=== PATIENT | male | born 1985 | race Caucasian/White ===

== ENCOUNTER 2024-04-03 01:00 | Emergency (ER) | payer BC, SELFPAY ==
[2024-04-03] VITALS (8 sets, daily range): BP systolic 136–202; BP diastolic 80–124; BMI 34.5
--- NOTE | 2024-04-03 01:21 | ED.GENMED ---
History of Present Illness
General
Chief Complaint: Abdominal Symptoms
Source: patient
Time Seen by Provider: 04/03/24 01:13
History of Present Illness
History of Present Illness:
38-year-old male presents to the emergency room complaining of acid reflux type burning in his upper abdomen and chest. Symptoms began around 9 PM. Patient admits to having a large [place] meal. He does have a history of reflux for which he takes
Nexium. He he cannot recall having heartburn this severe however. No shortness of breath. Patient has a history of hypertension. He had a cardiac cath 10 years ago which was clean. No true abdominal pain. Patient endorses significant stress in
his life.
Phy Exam
Physical Exam
Physical Exam:
General: Awake, Alert, Oriented X3. No acute distress.
Vitals: unremarkable
Head: Atraumatic
Eyes: Pupils equal, EOMI
Throat: Airway intact, no exudates
Neck: Trachea midline
Lungs: Clear and equal b/l
Heart: Regular rate, no murmurs
Abd: Soft, Nontender, No pulsatile mass
Neuro: Nonfocal
Skin: Warm, dry, no rash
Extremities: pulses equal b/l, no edema
Course
Orders/Labs/Results
Orders:
Orders
04/03/24 01:08
ECG [Electrocardiogram (*1)] Urgent
Reason for Study: Hypertension, Benign
EKG- Treatment ONCE
04/03/24 01:11
IV Insert/Care/Rem.- Treatment PRN
04/03/24 01:20
Complete Blood Count/With Diff Urgent
Comprehensive Metabolic Panel Urgent
Lipase Urgent
Troponin I Urgent
04/03/24 01:21
Mag Hydrox/Al Hydrox/Simeth [Maalox] 30 ml Phenobarb/Hyoscy/Atropine/Scop [] 10 ml Viscous Lidocaine 2% [Xylocaine Viscous Cup] 10 ml PO NOW
04/03/24 01:34
Mag Hydrox/Al Hydrox/Simeth [Maalox] 30 ml .ROUTE .STK-MED ONE
Phenobarb/Hyoscy/Atropine/Scop [] 10 ml .ROUTE .STK-MED ONE
04/03/24 01:35
Viscous Lidocaine 2% [Xylocaine Viscous Cup] 15 ml .ROUTE .STK-MED ONE
04/03/24 02:19
Famotidine [Pepcid] 20 mg IV NOW STA
04/03/24 02:31
Electrocardiogram (*1) Urgent
Reason for Study: Chest Pain
EKG- Treatment ONCE
04/03/24 04:20
Troponin I Urgent
04/03/24 05:12
Sucralfate Suspension [Carafate Suspension] 1 gm PO NOW STA
Abnormal Lab Results
04/03/24
01:20
Absolute Lymphs (auto) 3.9 H 10^3/uL
(1.2-3.4)
BUN 22 H mg/dl
(9-20)
Glucose 120 H mg/dl
(70-99)
04/03/24 01:20
04/03/24 01:20
Vital Signs
Initial and Last Documented VS:
Initial Vital Signs
Temp Pulse Resp BP Pulse Ox
98.2 F 70 24 202/124 98
04/03/24 01:02 04/03/24 01:02 04/03/24 01:02 04/03/24 01:02 04/03/24 01:02
Last Documented Vital Signs
Temp Pulse Resp BP Pulse Ox
98.2 F 60 24 136/80 94
04/03/24 01:02 04/03/24 04:00 04/03/24 04:00 04/03/24 04:00 04/03/24 04:00
*EKG
Interpreted by ED Provider?: Yes
Heart Rate: 67
Rate: normal
Rhythm: sinus
[place]: normal axis
Interval: normal interval
QRS Pattern: normal QRS
Ischemia: no ischemia
*Circuit Breaker Supervisor Interpretation
Rate: normal
Interpretation: normal
Rhythm: sinus
*Critical Care Note
Total Time (30-74mins, 75-104mins- exclusive of procedures): Not Applicable
ED Attending Note
-
Portions of this chart may have been created with voice recognition software.� Occasional wrong word or��sound alike� substitutions may have occurred due to the inherent limitations of voice recognition software.
Discharge Plan
Departure
Patient Disposition: Home (Routine Discharge)
Date of Disposition: 04/03/24
Time of Disposition: 05:12
Patient with high blood pressure during this ER visit?: Yes
Condition: Good
Discharge Problem:
GERD (gastroesophageal reflux disease)
Instructions: Acid reflux and GERD in adults
Prescriptions:
New
sucralfate [Carafate] 100 mg/mL suspension
10 ml PO QID PRN (Reason: reflux) Qty: 400 0RF
No Action
metoprolol succinate 100 mg Tablet Extended Release 24 Hr
100 mg PO DAILY
esomeprazole magnesium 40 mg Capsule,Delayed Release(Dr/Ec)
40 mg PO DAILY
sertraline 50 mg Tablet
50 mg PO DAILY
valsartan-hydrochlorothiazide 320-25 mg Tablet
1 tab PO DAILY
Referrals:
Connie Mayfield NP [Family Provider] -
Interventions
Interventions:
*Risk Screen - Suicide Last Done: 04/03/24 01:02
*General Assessment Last Done: 04/03/24 01:21
*Neglect/Abuse Screening Last Done: 04/03/24 01:02
ED- Fall Risk Assessment Last Done: 04/03/24 01:21
*ED COVID-19 Vaccine History Last Done: 04/03/24 01:21
BC-Kjgchf-Iavrozyare Assessment Last Done: 04/03/24 01:21
ED- Cardiac Assessment Last Done: 04/03/24 01:21
ED- Neurological Assessment Last Done: 04/03/24 01:21
ED- Pulmonary Assessment Last Done: 04/03/24 01:21
Discharge Date and Time
Print Language: PERUVIAN
[2024-04-03 01:32] LABS: % Basophils 0.3 % (0-2); % Immature Granulocytes 0.2 % (0-0.5); % Lymphocytes 41.4 % (20.5-51.1); % Neutrophils 51.1 % (42.2-75.2); Absolute Eosinophils 0.1 10^3/uL (0-0.7); Absolute Lymphocytes 3.9 10^3/uL (1.2-3.4); Absolute Monocytes 0.6 10^3/uL (0.1-0.6); Absolute Neutrophils 4.8 10^3/uL (1.4-6.5); Hematocrit 39.8 % (39.0-52.0); Hemoglobin 14.3 g/dL (13.0-18.0); Mean Corp Hgb Conc. 35.9 g/dL (33.0-37.0); Mean Corpuscular Hgb 29.8 pg (27.0-31.0); Mean Corpuscular Volume 82.9 fL (80.0-94.0); Mean Platelet Volume 9.8 fL (7.4-10.4); Nucleated Red Blood Cells % 0 % (-); Platelet Count 273 10^3/uL (130-400); Red Cell Dist. Width 12.5 % (11.5-14.5); White Blood Cell Count 9.4 10^3/uL (4.8-10.8)
[2024-04-03] MEDS: MAALOX 10 PO (01:37)
[2024-04-03 01:41] LABS: ALT (SGPT) 29 U/L (0-50); AST (SGOT) 26 U/L (17-59); Albumin 4.6 g/dl (3.5-5.0); Alkaline Phosphatase 101 U/L (38-126); Blood Urea Nitrogen 22 mg/dl (9-20); Calcium 9.8 mg/dl (8.4-10.2); Carbon Dioxide 22 mmol/L (22-30); Chloride 104 mmol/L (98-107); Estimated Creatinine Clearance > 125 ml/min; Glucose 120 mg/dl (70-99); Lipase 189 U/L (23-300); Sodium 142 mmol/L (135-145); Total Bilirubin 0.3 mg/dl (0.2-1.3); Total Protein 7.4 g/dl (6.3-8.2); eGFR > 60.00
[2024-04-03 01:55] LABS: Troponin I < 0.012 ng/ml
[2024-04-03] MEDS: PEPCID 20 MG IV (02:33)
[2024-04-03 04:51] LABS: Troponin I < 0.012 ng/ml
[2024-04-03] MEDS: CARAFATE SUSPENSION 1 GM PO (05:24)
== END 2024-04-03 05:34 | disposition home or self-care (01) ==
LOC: EMR 01:00
PROVIDERS: EMERGENCY PHYSICIAN Emergency Medicine; FAMILY PHYSICIAN Nurse Practitioner Family
DX: K21.9 Gastro-esophageal reflux disease without esophagitis (principal); I10 Essential (primary) hypertension; Z79.899 Other long term (current) drug therapy
CPT/HCPCS: 99284; 96374; 80053; 83690; 84484; 85025; 93005